=== PATIENT | male | born 1930 | race Caucasian/White ===

== ENCOUNTER 2017-06-05 10:01 | Emergency (ER) | payer OTHER ==
[~2017-06-05] VITALS: Ht 167.6 cm; Wt 46.8 kg
[2017-06-05 12:00] LABS: MCH 31.2 PG (29.0-34.0); MCHC 34.4 G/DL (30.0-36.0); MCV 90.9 FL (86-99); MEAN PLAT.VOLUME 11.1 uM^3 (9.0-12.4); PLATELET COUNT 347 K/uL (156-360); RBC DIS.WIDTH-CV 11.9 % (11.8-14.6); RBC DIS.WIDTH-SD 39.8 % (39-53); RED BLOOD COUNT 4.29 M/uL (4.00-5.50); WHITE BLOOD COUNT 14.7 K/uL (4.1-10.2)
[2017-06-05 12:13] LABS: CHLORIDE 101 mEq/L (99-109); POTASSIUM 4.5 mEq/L (3.7-5.4); SODIUM 136 mEq/L (136-147)
[2017-06-05 12:15] LABS: GLUCOSE 182 mg/dL (70-99)
[2017-06-05 12:17] LABS: ANION GAP 9 MEQ/L (2-14); TOTAL BILIRUBIN 0.6 mg/dL (0.0-1.0)
[2017-06-05 12:19] LABS: ALKALINE PHOSPHATASE 90 IU/L (3-129); GFR ESTIMATE (CALCULATED) > 59 mL/min/
[2017-06-05 12:20] LABS: UREA NITROGEN (BUN) 32 mg/dL (9-23)
[2017-06-05 12:35] LABS: ADD MIUA? NO; BILIRUBIN NEGATIVE; BLOOD NEGATIVE; COLOR YELLOW ((YELLOW)); GLUCOSE (STRIP) 150; KETONES NEGATIVE; LEUKOCYTES NEGATIVE; NITRITE NEGATIVE; PROTEIN (STRIP) NEGATIVE; SPECIFIC GRAVITY 1.016 (1.000-1.030); UCUL ADDED? NO; UROBILINOGEN 0.2 MG/DL (0.2-1.0)
[2017-06-05] MEDS ORDERED: MIRALAX17 GM PO (17:18)
[2017-06-05 18:10] VITALS: BP 136/106
== END 2017-06-05 18:12 | disposition home or self-care (01) ==
LOC: EME 10:01
DX: K59.00 Constipation, unspecified (principal); R29.6 Repeated falls; Z91.81 History of falling; K57.30 Diverticulosis of large intestine without perforation or abscess without bleeding; E11.9 Type 2 diabetes mellitus without complications; Z79.84 Long term (current) use of oral hypoglycemic drugs
CPT/HCPCS: 74177; 80053; 81003; 85027; 99281; 99285; J2405; J7030